=== PATIENT | female | born 1955 | race Caucasian/White ===

== ENCOUNTER 2022-06-26 06:42 | Day surgery (SDC) | payer MEDICARE ==
[~2022-06-26] VITALS: Ht 160 cm; Wt 97.8 kg
[~2022-06-26 06:42] MED LIST: ALBU90OI INH; CYMBALTA30 M1 PO; FAMO10; LIOT5 PO; LORA10ER; LORA10ER PO; OMEPRAZOLE MAGN20 MG PO; Synthroid200 MCG PO
--- NOTE | 2022-06-26 18:21 | NUR ---
SHIFT SUMMARY PATIENT NEW ADMIT TO UNIT POST OP DAY 0 LEFT TKA. ALERT AND ORIENTED. TOLERATING REGULAR DIET AND LIQUIDS. EATS OWN FOOD FROM HOME DUE TO MULTIPLE FOOD SENSITIVITIES, NO TRAYS ORDERED. AMBULATED IN HALLS WITH PT, VOIDING WELL. PAIN CONTROLLED WITH PO MEDS AND IV FOR BREAKTHROUGH. LEFT KNEE WITH AQUACEL, BECKY WRAP, COMPRESSION STOCKING, AND POLAR PACK IN PLACE. SALINE LOCKED. PLAN FOR DISCHARGE HOME IN AM.
[2022-06-27 05:21] LABS: BASOPHILS ABSOLUTE AUTO 0.04 K/mm3 (0.00-0.23); BASOPHILS PERCENT AUTO 0 % (0-2); EOSINOPHILS ABSOLUTE AUTO 0.02 K/mm3 (0.00-0.68); EOSINOPHILS PERCENT AUTO 0 % (0-6); Hematocrit 36.7 % (33.0-51.0); Hemoglobin 12.4 g/dL (11.5-16.0); IMMATURE GRAN ABSOLUTE AUTO 0.06 K/mm3 (0.00-0.10); IMMATURE GRAN PERCENT AUTO 1 % (0-1); LYMPHOCYTES ABSOLUTE AUTO 2.07 K/mm3 (0.84-5.20); LYMPHOCYTES PERCENT AUTO 16 % (21-46); MONOCYTES ABSOLUTE AUTO 1.42 K/mm3 (0.16-1.47); MONOCYTES PERCENT AUTO 11 % (4-13); Mean Corpuscular HGB 31.7 pg (26.0-34.0); Mean Corpuscular HGB Conc 33.8 g/dL (31.5-36.5); Mean Corpuscular Volume 94 fL (80-100); NEUTROPHILS ABSOLUTE AUTO 9.72 K/mm3 (1.96-9.15); NEUTROPHILS PERCENT AUTO 73 % (41-73); Platelet Count 217 K/mm3 (150-400); RDW Coefficient Variation 12.8 % (11.7-14.2); RDW Standard Deviation 43.8 fL (35.1-46.3); Red Blood Cell Count 3.91 M/mm3 (3.80-5.20); White Blood Cell Count 13.33 K/mm3 (4.00-11.30)
[2022-06-27 05:57] LABS: Bun/Creatinine Ratio 20.6 (12.0-20.0); Calcium, Blood 9.1 mg/dL (8.5-10.1); Creatinine, Blood 0.54 mg/dL (0.40-1.00); Potassium, Blood 3.9 mmol/L (3.5-5.5)
--- NOTE | 2022-06-27 06:08 | NUR ---
SHIFT SUMMARY PT A&OX4, PLEASANT AND COOPERATIVE. PT WAS PAINFUL T/O NIGHT, MEDICATED PER EMAR. SBA TO BATHROOM WITH FWW. TOLERATING PO INTAKE. SLEPT WITH HOME CPAP IN PLACE WITH 2L OXYGEN. CALLS APPROPRIATELY, CALL LIGHT WITHIN REACH.
--- NOTE | 2022-06-27 11:30 | NUR ---
PATIENT TEARFUL, STATING SHE "CANT DO THIS", "I CANT MOVE", "IT HURTS TOO BAD". REASSURED PATIENT AND DISCUSSED MOBILITY WILL HELP. PATIENT UNRECEPTIVE AND STATES "NO SURGERY HAS EVER FELT LIKE THIS". PATIENT IS VERY UNRECEPTIVE OF THE PLAN TO GO HOME TODAY.
[2022-06-27] MEDS ORDERED: ELIQUIS2.5 MG PO (13:05)
[2022-06-27] MEDS ORDERED: Percocet 5-3251 EACH PO (13:05)
--- NOTE | 2022-06-27 14:32 | NUR ---
DISCHARGE PT HAS CLEARED THERAPY. PAIN MANAGEMENT PER EMAR. EATING, DRINKING, & VOIDING WELL. AMBULATING WELL W/ FWW & GB. DISCUSSED DISCHARGE INSTRUCTIONS, ANSWERED ALL QUESTIONS VERBALIZED TO THIS RN, AND SENT WITH PATIENT. ALSO SENT DRSGS, SCRIPT, & POLAR PACK PATIENT. ESCORTED OUT VIA W/C.
== END 2022-06-27 14:43 | disposition home or self-care (01) ==
LOC: ORSCMMR 06:42 → ORD 07:30 → ORSCMMR 08:15 → SURS 12:05 → ORSCMMR 06-27 14:43
PROVIDERS: Orthopaedic Surgery
PROC: 0SRD0JA Replacement of Left Knee Joint with Synthetic Substitute, Uncemented, Open Approach (ICD-10-PCS; principal; 2022-06-26 08:15)
DX: M17.0 Bilateral primary osteoarthritis of knee (principal); R73.03 Prediabetes; Z87.891 Personal history of nicotine dependence; K21.9 Gastro-esophageal reflux disease without esophagitis; Z86.16 Personal history of COVID-19; E66.9 Obesity, unspecified; Z68.38 Body mass index [BMI] 38.0-38.9, adult; Z79.899 Other long term (current) drug therapy
CPT/HCPCS: 36415; 73560-LT; 80048; 85025; 94640; 94660; 94664; 94760; 94762; 97110; 97116; 97161; 97530; A9270; C1776; J0171; J0690; J0735; J1100; J1170; J2250; J2405; J2704; J2795; J3010; J7120

== ENCOUNTER → 2022-12-31 | Outpatient (CLI) | payer OTHER ==
[~2022-12-31] MED LIST changes: +ELIQUIS2.5 MG PO; +Percocet 5-3251 EACH PO
== END | disposition home or self-care (01) ==
LOC: LAB SHORT 07:41 → LAB 07:41
DX: D17.23 Benign lipomatous neoplasm of skin and subcutaneous tissue of right leg (principal); M25.571 Pain in right ankle and joints of right foot; G89.29 Other chronic pain
CPT/HCPCS: 88304

== ENCOUNTER → 2023-07-30 | Outpatient (CLI) | payer OTHER ==
[2023-07-30 15:33] LABS: Candida species (DNA Probe) Negative (NEGATIVE); G. vaginalis (DNA Probe) Negative (NEGATIVE); T. vaginalis (DNA Probe) Negative (NEGATIVE)
== END | disposition home or self-care (01) ==
LOC: LAB 08:15 → LAB SHORT 08:15
PROVIDERS: Physician Assistant
DX: N89.8 Other specified noninflammatory disorders of vagina (principal)
CPT/HCPCS: 87480; 87510; 87660

== ENCOUNTER → 2023-12-02 | Outpatient (CLI) | payer OTHER | LOC: LAB SHORT 08:15 → LAB 08:15 | DX: D17.24 Benign lipomatous neoplasm of skin and subcutaneous tissue of left leg (principal); M25.572 Pain in left ankle and joints of left foot; G89.29 Other chronic pain | CPT/HCPCS: 88304 ==

== ENCOUNTER 2025-09-28 02:46 | Day surgery (SDC) | payer OTHER ==
[~2025-09-28 02:46] MED LIST changes: +Sod Ferric Gluc Complx/Sucrose 125 MG in NS 100 ML IV SCH
[2025-09-28 15:37] VITALS: BP 136/88
== END 2025-09-28 16:20 | disposition home or self-care (01) ==
LOC: ATC 02:46
DX: D50.9 Iron deficiency anemia, unspecified (principal); E66.811 Obesity, class 1; E11.9 Type 2 diabetes mellitus without complications; E03.9 Hypothyroidism, unspecified; E78.5 Hyperlipidemia, unspecified; G47.30 Sleep apnea, unspecified; K21.9 Gastro-esophageal reflux disease without esophagitis; K91.2 Postsurgical malabsorption, not elsewhere classified; Z68.34 Body mass index [BMI] 34.0-34.9, adult; Z79.890 Hormone replacement therapy; Z79.899 Other long term (current) drug therapy; Z87.891 Personal history of nicotine dependence; Z88.6 Allergy status to analgesic agent; Z88.8 Allergy status to other drugs, medicaments and biological substances; Z91.0110 Allergy to milk products, unspecified; Z91.018 Allergy to other foods; Z98.84 Bariatric surgery status
CPT/HCPCS: 96365; J2916

== ENCOUNTER 2025-10-05 02:43 | Day surgery (SDC) | payer OTHER ==
[~2025-10-05 02:43] MED LIST changes: -Sod Ferric Gluc Complx/Sucrose 125 MG in NS 100 ML IV SCH
[2025-10-05] MEDS ORDERED: Sod Ferric Gluc Complx/Sucrose 125 MG in NS 100 ML IV SCH (06:00)
[2025-10-05 10:15] VITALS: BP 127/77
== END 2025-10-05 11:15 | disposition home or self-care (01) ==
LOC: ATC 02:43
DX: D50.9 Iron deficiency anemia, unspecified (principal); E11.9 Type 2 diabetes mellitus without complications; E03.9 Hypothyroidism, unspecified; E78.5 Hyperlipidemia, unspecified; G47.30 Sleep apnea, unspecified; K21.9 Gastro-esophageal reflux disease without esophagitis; U09.9 Post COVID-19 condition, unspecified; Z87.891 Personal history of nicotine dependence; Z79.890 Hormone replacement therapy; Z79.899 Other long term (current) drug therapy; Z88.6 Allergy status to analgesic agent; Z91.018 Allergy to other foods; Z91.0110 Allergy to milk products, unspecified; Z98.84 Bariatric surgery status; Z90.49 Acquired absence of other specified parts of digestive tract
CPT/HCPCS: 96365; J2916

== ENCOUNTER 2025-10-12 00:10 | Day surgery (SDC) | payer OTHER ==
[2025-10-12] MEDS ORDERED: Sod Ferric Gluc Complx/Sucrose 125 MG in NS 100 ML IV SCH (01:00)
[2025-10-12 11:07] VITALS: BP 129/72
== END 2025-10-12 12:10 | disposition home or self-care (01) ==
LOC: ATC 00:10
DX: D50.9 Iron deficiency anemia, unspecified (principal); E66.811 Obesity, class 1; E11.9 Type 2 diabetes mellitus without complications; E78.5 Hyperlipidemia, unspecified; E03.9 Hypothyroidism, unspecified; G47.30 Sleep apnea, unspecified; K21.9 Gastro-esophageal reflux disease without esophagitis; Z68.34 Body mass index [BMI] 34.0-34.9, adult; Z79.890 Hormone replacement therapy; Z79.899 Other long term (current) drug therapy; Z87.891 Personal history of nicotine dependence; Z88.6 Allergy status to analgesic agent; Z88.8 Allergy status to other drugs, medicaments and biological substances; Z90.49 Acquired absence of other specified parts of digestive tract; Z91.0110 Allergy to milk products, unspecified; Z91.014 Allergy to mammalian meats; Z91.018 Allergy to other foods; Z98.84 Bariatric surgery status
CPT/HCPCS: 96365; J2916

== ENCOUNTER 2025-10-19 15:10 | Day surgery (SDC) | payer OTHER ==
[~2025-10-19 15:10] MED LIST changes: +Sod Ferric Gluc Complx/Sucrose 125 MG in NS 100 ML IV SCH
[2025-10-19 15:17] VITALS: BP 129/74
== END 2025-10-19 16:13 | disposition home or self-care (01) ==
LOC: ATC 15:10
DX: D50.9 Iron deficiency anemia, unspecified (principal); E11.9 Type 2 diabetes mellitus without complications; K21.9 Gastro-esophageal reflux disease without esophagitis; E78.5 Hyperlipidemia, unspecified; E03.9 Hypothyroidism, unspecified; Z87.891 Personal history of nicotine dependence; Z79.890 Hormone replacement therapy; Z88.8 Allergy status to other drugs, medicaments and biological substances; Z91.0110 Allergy to milk products, unspecified; Z91.014 Allergy to mammalian meats; Z91.018 Allergy to other foods
CPT/HCPCS: 96365; J2916

== ENCOUNTER 2025-10-26 08:16 | Day surgery (SDC) | payer OTHER ==
[2025-10-26 10:47] VITALS: BP 136/78
== END 2025-10-26 11:44 | disposition home or self-care (01) ==
LOC: ATC 08:16
DX: D50.9 Iron deficiency anemia, unspecified (principal); K91.2 Postsurgical malabsorption, not elsewhere classified; K21.9 Gastro-esophageal reflux disease without esophagitis; E78.5 Hyperlipidemia, unspecified; E11.9 Type 2 diabetes mellitus without complications; E03.9 Hypothyroidism, unspecified; Z87.891 Personal history of nicotine dependence; Z91.0110 Allergy to milk products, unspecified; Z91.014 Allergy to mammalian meats; Z91.018 Allergy to other foods; Z88.8 Allergy status to other drugs, medicaments and biological substances
CPT/HCPCS: 96365; J2916